=== PATIENT | female | born 1990 | race Caucasian/White ===

== ENCOUNTER 2016-04-20 19:26 | Outpatient (CLI) | payer BC ==
[~2016-04-20] VITALS: Ht 160 cm; Wt 84.5 kg
[2016-04-20 20:08] VITALS: Ht 160 cm; Wt 84.5 kg
[2016-05-06] MEDS ORDERED: MISC-836 (11:32)
== END 2016-04-20 20:28 | disposition home or self-care (01) ==
LOC: C.OPB 19:26 → C.LD 19:27 → C.OPB 19:56 → C.LD 19:56 → UNDOADMIN 19:56 → C.LD 20:28
PROVIDERS: ATTEND Obstetrics & Gynecology
DX: O36.8130 Decreased fetal movements, third trimester, not applicable or unspecified (principal); Z3A.38 38 weeks gestation of pregnancy

== ENCOUNTER 2016-05-02 00:52 | Outpatient (CLI) | payer BC ==
[~2016-05-02] VITALS: Ht 162.6 cm; Wt 84.4 kg
[2016-05-02 01:27] VITALS: Ht 162.6 cm; Wt 84.4 kg
[2016-05-02] MEDS ORDERED: FERR1TAB23 (01:32)
[2016-05-02] MEDS ORDERED: PRENTAB26 PO (01:32)
--- NOTE | 2016-05-07 12:25 | EDITING REQUIRED CODING QUERY ---
DIAGNOSIS NEEDED To promote full compliance with coding requirements relating to patient care, physician participation is requested in all cases of chief psychology uncertainty. Please assist us with the question(s) below: Coding Question: The patient received care in labor and delivery on 05/02/16 as noted within the record. Please document the diagnosis that is being addressed by the medication/treatment. Provider Response: DIAGNOSIS: False labor , thought she leaking amniotic fluid but was not Thank you for your assistance, Bee Oquendo - Wet Mix Operator
== END 2016-05-02 02:34 | disposition home or self-care (01) ==
LOC: C.OPB 00:52 → C.LD 00:53 → C.OPB 02:34 → EDSTATUS 05-04 00:50
PROVIDERS: ATTEND Obstetrics & Gynecology
DX: Z34.03 Encounter for supervision of normal first pregnancy, third trimester (principal); Z3A.39 39 weeks gestation of pregnancy

== ENCOUNTER 2016-05-04 19:43 | Inpatient (IN) | payer BC ==
[~2016-05-04] VITALS: Ht 160 cm; Wt 84.1 kg
[~2016-05-04 19:43] MED LIST: FERR1TAB23; PRENTAB26 PO
[2016-05-04 19:58] VITALS: Ht 160 cm; Wt 84.1 kg
[2016-05-04] MEDS ORDERED: LACTATED RINGER'S 1000ML 1,000 ML IV PRN (22:44)
[2016-05-04] MEDS ORDERED: LACTATED RINGER'S 1000ML 1,000 ML IV SCH (22:44)
[2016-05-04 23:21] LABS: HEMATOCRIT 33.6 % (37-47); MEAN CELL VOLUME 80.6 fL (80-100); MEAN CORPUSCULAR HEMOGLOBIN 27.3 pg (25-34); MEAN CORPUSCULAR HGB CONC 33.9 g/dl (32-36); MEAN PLATELET VOLUME 11.3 fL (7.4-10.4); PLATELET COUNT 180 K/uL (130-400); RED BLOOD COUNT 4.17 M/uL (4.2-5.4); WHITE BLOOD COUNT 20.82 K/uL (4.8-10.8)
[2016-05-05] MEDS ORDERED: EpHEDrine SULFATE INJ 50 MG/ML AMP ONE (00:41)
[2016-05-05] MEDS ORDERED: BUPIVACAINE 0.25% 30 ML VIAL ONE ×2 (00:41→12:29)
[2016-05-05] MEDS ORDERED: FENTANYL CITRATE INJ 50 MCG/1 ML 2 ML VIAL ONE ×2 (00:42→12:28)
[2016-05-05] MEDS ORDERED: FENTANYL 2MCG/ML ROPIV 1.25MG/ML 100ML BAG EPI ONE (00:42)
[2016-05-05] MEDS ORDERED: LACTATED RINGER'S 1000ML 500 ML IV PRN (01:16)
[2016-05-05] MEDS ORDERED: NALOXONE HCL INJ 1 MG in SODIUM CHLORIDE 0.9% 1000ML 1,000 ML IV PRN (01:16)
[2016-05-05] MEDS ORDERED: NALOXONE HCL INJ 0.4 MG/1 ML VIAL/CARP IV PRN (01:30)
[2016-05-05] MEDS ORDERED: ONDANSETRON INJ 2 MG/ML 2 ML VIAL IV PRN (01:30)
[2016-05-05] MEDS ORDERED: EpHEDrine SULFATE INJ 50 MG/ML AMP IV PRN (01:30)
[2016-05-05] MEDS ORDERED: NALBUPHINE HCL INJ 10 MG/ML AMP IV PRN (01:30)
[2016-05-05] MEDS ORDERED: DiphenhydrAMINE HCL 50 MG/ML VIAL IV PRN (01:30)
[2016-05-05] MEDS ORDERED: CALCIUM CARBONATE 500 MG CHEWABLE PO PRN (03:00)
[2016-05-05] MEDS: FENTANYL 2MCG/ML ROPIV 1.25MG/ML 100ML BAG EPI PRN ×4 (07:00→15:22)
[2016-05-05] MEDS ORDERED: NURSING VERBAL MED ORDER ONE ×2 (09:15→12:11)
[2016-05-05] MEDS ORDERED: OXYTOCIN 30 UNITS/500ML NSS IV PRN ×2 (09:30→16:45)
[2016-05-05] MEDS ORDERED: AMPICILLIN IV 2,000 MG in SODIUM CHLOR 0.9% AD-VAN 100ML 100 ML IV SCH ×2 (12:30→18:00)
[2016-05-05] MEDS ORDERED: ACETAMINOPHEN 325 MG TAB PO PRN (16:45)
[2016-05-05] MEDS ORDERED: LANOLIN OINT EXT PRN ×2 (16:45)
[2016-05-05] MEDS ORDERED: HYDROCORTISONE ACETATE 25 MG SUPP PR PRN (16:45)
[2016-05-05] MEDS ORDERED: BENZOCAINE 20% AER SPR 82.5 GM CAN EXT PRN (16:45)
[2016-05-05] MEDS ORDERED: SUPERCREAM 0.870 % 15GM JAR EXT PRN (16:45)
[2016-05-05] MEDS ORDERED: ACETAMINOPHEN/CODEINE 300/30MG TAB PO PRN ×2 (16:45)
[2016-05-05] MEDS ORDERED: DIPHTHERIA/TETANUS/PERTUSSIS 0.5 ML SYR/VIAL IM. ONE (16:45)
--- NOTE | 2016-05-05 19:26 | Anesthesia Procedure Note ---
Anesthesia Epidural Removal Nt Date & Time May 05, 2016 at 19:26 Vital Signs Pain Intensity: 0.0 Notes Mental Status: alert / awake / arousable, participated in evaluation Nausea / Vomiting: adequately controlled Pain: adequately controlled Airway Patency, RR, SpO2: stable & adequate BP & HR: stable & adequate Hydration State: stable & adequate Neuraxial Anesthesia: was administered Anesthetic Complications: no major complications apparent, pt satisfied with anesthetic care Epidural: removed without complications, with tip intact
[2016-05-05] MEDS: DOCUSATE SODIUM 100 MG CAP PO SCH (20:34)
[2016-05-05 20:50] VITALS: BP 108/67; PULSE 81; TEMP 36.8; O2SAT 96
[2016-05-05] MEDS: IBUPROFEN 600 MG TAB PO PRN (21:08)
--- NOTE | 2016-05-05 21:16 | DELIVERY SUMMARY ---
DATE OF OPERATION: 05/05/2016 FINDINGS: Viable female with Apgars of 1 at 1 minute and 3 at 5 minutes and 4 at 10 minutes, delivered directly OP over a midline episiotomy. Terminal meconium noted with delivery, baby limp with delivery with immediate cord clamping and transported to the resuscitation stand for evaluation and intervention. Cord gases and cord blood samples obtained. Placenta delivered spontaneously and sent for pathological evaluation. Midline episiotomy repaired with 4-0 and 2-0 Vicryl in a routine fashion. Estimated blood loss was 300 mL. LABOR NOTE: The patient is a 25-year-old 1, para 0 with an EDC of 04 May who was admitted at 40 and 0/7 weeks gestational age in early active labor. The patient presented to labor and delivery in the evening of the 04 of May for evaluation. Cervical change was documented and she was admitted. The patient's course had essentially been unremarkable. Her blood type is A negative, antibody negative. She received RhoGAM on the 10 of April. She is rubella immune, hepatitis B negative. She had a negative quad screen. She had a normal 1 hour Glucola x2 and a negative third trimester beta strep culture. The patient progressed to 4 cm and anesthesia was consulted and an epidural was placed. Following placement of the epidural, the patient had artificial rupture of membranes at 0300 for copious clear fluid. The patient had transfer of obstetrical care on the morning of [address] Delaney Cordero. The contractions spaced out after the epidural, and she had an isolated temperature spike to 100.6. There was a resultant increase in the heart rate into the 160s. Because of the elevated temperature, there was concern for chorioamnionitis and she was started on ampicillin 2 g IV q. 6 hours. With the contraction spacing out, Pitocin augmentation was initiated. An intrauterine pressure catheter was also placed in an attempt to monitor contractions appropriately. The patient had increasing pressure and pain, and anesthesia needed to redose her epidural. The patient progressed to an anterior lip and had an urge to push, but the anterior lip could not be reduced. She was then placed in knee chest position for approximately 45 minutes and then rechecked, the anterior lip could be reduced and she was able to begin her second stage. During the entire first stage of labor, her tracing was category 2 with moderate variability with accelerations. The patient pushed for approximately 1 hour and delivered over midline episiotomy in direct OP presentation with delivery of the infant terminal meconium was noted. The baby was limp and pale at , and immediate cord clamping occurred, and the baby was taken to the resuscitation stand. Please see the notes and details from the resuscitation for further information. Placenta delivered spontaneously prior to the cord gases and cord blood samples were obtained. The midline episiotomy was repaired with 4-0 and 2-0 Vicryl. Estimated blood loss was 300 mL. Sponge and needle count was correct. I attest to the content of the Intraoperative Record and any orders documented therein. Any exceptio ns are noted below.
[2016-05-06 00:15] VITALS: BP 111/71; PULSE 75; TEMP 36.5; O2SAT 97
[2016-05-06] MEDS ORDERED: NURSING VERBAL MED ORDER ONE (00:45)
[2016-05-06 04:25] VITALS: BP 98/63; PULSE 67; TEMP 36.6; O2SAT 97
[2016-05-06] MEDS: IBUPROFEN 600 MG TAB PO PRN (04:51)
--- NOTE | 2016-05-06 06:45 | Progress Note ---
Subjective May 06, 2016. Subjective conversation w/ patient, physical exam Ambulation: ambulating normally Voiding: no voiding problems Passing Gas: Yes Diet Tolerance: Regular Diet Lochia: Small Feeding Type: Breast Feeding Pain: No pain reported Review of Systems Constitutional: No chills, No fever Respiratory: No cough, No shortness of breath Cardiac: No chest pain Breast: No breast pain Abdomen: No nausea, No pain, No vomiting Female : No dysuria Objective Vital Signs Date Time Temp Pulse Resp B/P Pulse Ox O2 Delivery O2 Flow Rate FiO2 05/06/16 04:25 36.6 67 20 98/63 97 Room Air 05/06/16 00:15 97 Room Air 05/06/16 00:15 36.5 75 20 111/71 97 Room Air 05/05/16 20:50 36.8 81 24 108/67 96 Room Air Physical Exam General Appearance: WELL-APPEARING, WD/WN, NO APPARENT DISTRESS Respiratory/Chest: lungs clear, normal breath sounds Cardiovascular: regular rate, rhythm, no gallop, no murmur Abdomen: non tender, soft Fundus: Firm, Relation to Umbilicus (At level of umbilicus) Extremities: no calf tenderness Laboratory Results Last 24 Hours Test 05/06/16 04:44 Medications Current Inpatient Medications Medications (Trade) Dose Ordered Sig/Jak Route Start Time Stop Time Status Last Admin Dose Admin Calcium Carbonate (Tums Chew Tab) 500 mg Q6 PRN PO 05/05/16 03:00 06/04/16 02:59 05/05/16 03:09 500 MG Oxytocin (Pitocin IV) 30 units UD PRN IV 05/05/16 16:45 06/04/16 16:44 Benzocaine (Dermoplast Aero Spr) 1 appln PRN PRN EXT 05/05/16 16:45 06/04/16 16:44 05/05/16 21:08 1 APPLN Cocaine HCl (Supercream 0.870% Cr) BID PRN EXT 05/05/16 16:45 05/19/16 16:44 05/05/16 21:08 15 GM Hydrocortisone Acetate (Anusol Hc Supp) 25 mg BID PRN AL 05/05/16 16:45 06/04/16 16:44 Lanolin (Lanolin Oint) PRN PRN EXT 05/05/16 16:45 06/04/16 16:44 Prenat Multivit/ Speculator/Iron/Folic Ac ( Vitamin Tab) 1 tab DAILY PO 05/06/16 08:00 06/05/16 07:59 Ibuprofen (Motrin Tab) 600 mg Q4H PRN PO 05/05/16 16:45 06/04/16 16:44 05/06/16 04:51 600 MG Acetaminophen (Tylenol Tab) 650 mg Q6H PRN PO 05/05/16 16:45 06/04/16 16:44 Acetaminophen/ Codeine Phosphate (Tylenol w/ Codeine #3 Tab) 1 tab Q4H PRN PO 05/05/16 16:45 06/04/16 16:44 Acetaminophen/ Codeine Phosphate (Tylenol w/ Codeine #3 Tab) 2 tab Q4H PRN PO 05/05/16 16:45 06/04/16 16:44 Bisacodyl (Dulcolax Tab) 5 mg 20 PO 05/06/16 20:00 05/06/16 20:01 Docusate Sodium (coLACE CAP) 100 mg BID PO 05/05/16 20:00 06/04/16 19:59 05/05/16 20:34 100 MG Ferrous Sulfate (Feosol Tab) 325 mg DAILY PO 05/06/16 08:00 06/05/16 07:59 Assessment and Plan Problem List Medical Problems: (1) Facial swelling Status: Acute (2) Pain, dental Status: Acute Post- Day#: 1 Continue Routine Care: - Vital Signs reviewed and WNL (temp max 36.8) - Blood Type: A-, GBS- , Rubella Immune - Patient doing well clinically - Encourage Ambulation today - No pain reported this morning - Tolerating PO Diet Well - Discharge today
--- NOTE | 2016-05-06 06:55 | Discharge Instructions ---
Discharge Instructions Admission Reason for Admission: LABOR Discharge Discharge Diagnosis / Problem: Vaginal Delivery Discharge Goals Goal(s): Routine recovery after delivery Medications Continue Dispensed Medications: supercream, dermaplast, tucks, lansinoh Activity Recommendations Activity Limitations: per Instructions/Follow-up section . Instructions / Follow-Up Instructions / Follow-Up ACTIVITY RECOMMENDATIONS: * Gradual return to full activity over the next 2-3 weeks. * No lifting - nothing heavier than baby over the next 2-3 weeks. * Do not engage in vigorous exercise, sexual activity or sports until cleared by your physician. * Do not drive or operate any motorized equipment until cleared by your physician. * You may shower/bathe daily. MEDICATIONS: For discomfort or pain, you may use Acetaminophen (Tylenol), Ibuprofen (Advil), or Naproxen (Aleve) following the package directions. For constipation you may use Colace following the package directions. BREAST CARE: If you are not breast feeding: * Wear a supportive bra 24 hours a day for one to two weeks. * Avoid stimulating your breasts and nipples as much as possible during the first few weeks after delivery. * When taking a shower, have the warm water hit your back, not breasts. * When your breasts feel full, apply ice packs. Usually three to four times a day helps ease the discomfort. * Take a mild pain medication (Tylenol / Motrin) when you are uncomfortable. If breast feeding: * Use breast milk to lubricate nipples. Lansinoh cream may be used for sore nipples. You do not need to remove cream prior to breast feeding. If using a different brand of cream, check the label for directions regarding removal of cream prior to nursing. * Wear a supportive bra. * If having problems with breasts or breast feeding, call a help desk consultant or your health care provider. EPISIOTOMY CARE: After delivery, if you have an episiotomy (stitches), the following steps will ease discomfort and aid healing. * For the first 24 hours after delivery, place ice packs next to your episiotomy to help reduce swelling. * After the first 24 hour-period, sitz baths, either portable or in the tub, are suggested. A shower with a shower arm sprayed over the episiotomy may be comforting. * Nan care should be done after each voiding and bowel movement. Squirt warm water from a plastic bottle over the perineum (region of the body between the anus and urinary opening) and pat dry. * Use Dermoplast to ease discomfort. Shake container. [place] directly over the episiotomy. Place a Tucks on a clean sanitary pad next to your episiotomy. SPECIAL CARE INSTRUCTIONS: When you are discharged from the hospital, it is important for you to follow the instructions listed below: * During the first week at home, you should be able to care for yourself and your baby. In addition, the usual light household activities are encouraged. * Limit your activities to the way you feel. Do not try to clean the house or move furniture. Be sensible. * If you actively engage in sports and have done so up until the time of your delivery, you may resume these activities as soon as you feel able. This may take up to one month or even longer. Use good judgment. * Continue to take your vitamins for at least six weeks after the of your baby. * Your diet need not be limited unless you were on a special diet before your delivery. Breast-feeding mothers need around 2500 calories per day and at least 64-80 ounces of fluid per day (8 to 10 glasses). * You should eat foods from the four major food groups. Crash diets or fad diets are to be avoided. Eating lean meats, fresh fruits and vegetables, low-fat dairy products, high fiber foods and a regular exercise program, will help you get back to your pre- weight without putting your health at risk. * Constipation is sometimes a problem after delivery. Take a mild laxative as needed. If breast feeding, Milk of Magnesia is acceptable to use. You may use a suppository or Fleets enema if no episiotomy. * A daily shower or tub bath is suggested. Be sure to thoroughly and gently dry the perineum. * A bloody vaginal discharge will usually continue until around four weeks post . A small amount of bleeding may continue for as long as six weeks. Vaginal discharge changes from the bright red bleeding after delivery to pink then brownish and finally yellowish-pink before becoming white and disappearing. * Bleeding may increase with activity. Your first period may come in 4-8 weeks. If you are breast feeding, your period may be delayed even longer. * [place] (sex) can begin whenever both you and your partner feel comfortable and do not have any form of genital infection. It is recommended that you wait at least six weeks for internal and external healing to occur. If you have questions, please talk to your health care practitioner. A condom should be used to prevent infection and . * Foreplay, gentle intercourse and lubrication is very important the first several times to prevent pain. A water-based lubricant such as K-Y jelly or Astroglide may be used. * If you have RH negative blood and your baby is RH positive, you will receive RHOGAM by injection prior to discharge. The nurse will give you a card to keep with you that has the date and place that you received RHOGAM after delivery. * During your care, you had a Rubella screen done to check for the presence of rubella antibodies in your blood. If your test was negative, you will receive a Rubella vaccine prior to discharge. This vaccine may cause a fever, soreness at the injection site and flu-like symptoms. If these symptoms persist, notify your health care practitioner. is not advised for one month after a Rubella vaccine. * Verbalizes understanding of car seat law as reviewed with patient nursing. * Car Seat hand-out given and reviewed with patient by nursing. * Shaken baby information reviewed with patient by nursing. Call you doctor if: * Heavy bleeding (saturating several pads an hour) or passing clots the size of your fist. * A fever >101 degrees F (38.3 degrees C) on two occasions four hours apart and /or chills. * Unusual pain in the pelvic or vaginal areas. * "Baby Blues" lasting longer than two weeks. If you have any questions or concerns, call your health care practitioner at . FOLLOW UP VISIT: * Please call the office at to schedule a 6 week examination. It is important you keep this appointment. It is important for you to make arrangements for either yearly or twice yearly check-ups thereafter. Current Hospital Diet Patient's current hospital diet: Regular OB Diet Discharge Diet Recommended Diet: Regular Diet Pending Studies Studies pending at discharge: no Medical Emergencies . Who to Call and When: Medical Emergencies: If at any time you feel your situation is an emergency, please call 911 immediately. . Non-Emergent Contact Non-Emergency issues call your: [facility] . . "Provider Documentation" section prepared by Jorge Alberto Hanson. VTE Core Measure Inpt VTE Proph given/why not?: Treatment not indicated
[2016-05-06 07:24] LABS: HEMATOCRIT 31.3 % (37-47)
[2016-05-06 08:00] VITALS: BP 103/63; PULSE 74; TEMP 36.6; O2SAT 97
[2016-05-06] MEDS ORDERED: PRENATAL VITAMIN TAB PO SCH (08:00)
[2016-05-06] MEDS ORDERED: FERROUS SULFATE 325 MG TAB PO SCH (08:00)
[2016-05-06] MEDS: DOCUSATE SODIUM 100 MG CAP PO SCH (08:49)
[2016-05-06] MEDS ORDERED: MISC-696 (11:32)
[2016-05-06 12:18] VITALS: BP_DIAS 63; PULSE 74; TEMP 36.6
[2016-05-06] MEDS ORDERED: BISACODYL 5 MG TABEC PO SCH (20:00)
--- NOTE | 2016-05-07 14:24 | EDITING REQUIRED CODING QUERY ---
CODING QUERY To promote full compliance with coding requirements relating to patient care, provider participation is requested in all cases of glove factory sewer uncertainty. Please assist us with the question(s) below: Dear Dr. Mathew, Please clarify Chorioamionitis below: Medical documentation : Because of the elevated temperature, there was concern for chorioamnionitis and she was started on ampicillin 2 g IV q. 6 hours Coding Question(s): Chorioamionitis? ( ) Patient has Chorioamionitis ( ) Present on Admission ( ) Not Present on Admission ( ) Unable to determine ( x) Suspected Chorioamionitis ( ) Present on Admission ( x ) Not Present on Admission ( ) Unable to determine ( ) Chorioamionitis was ruled out ( ) Other: Please explain ( ) Unable to determine Physician's Response(s): Thank you for your time. Miladys Carlos [facility] Principal Diagnosis: "_that condition established after study, to be chiefly responsible for occasioning the admission of the patient to the hospital for care." Co-Existing Principal Diagnosis: "_when two or more diagnoses equally meet the criteria for principal diagnosis as determined by the circumstances of admission, diagnostic work up, and/or therapy provided, and the Alphabetic Index, Tabular List, or another coding guideline does not provide sequencing direction, any one of the diagnoses may be sequenced first." "When the physician has documented what appears to be a current diagnosis in the body of the record, but has not included the diagnosis in the final diagnostic statement, the physician should be asked whether the diagnosis should be added." (Source Coding [facility] 2 QTR90. p3-4)
== END 2016-05-06 12:17 | disposition home or self-care (01) | DRG 774 ==
LOC: C.OPB 19:43 → C.LD 19:44 → C.OPB 22:46 → C.OBG 05-05 20:03
PROVIDERS: ADMIT Obstetrics & Gynecology; ATTEND Obstetrics & Gynecology
PROC: 0W8NXZZ Division of Female Perineum, External Approach (ICD-10-PCS; principal; 2016-05-05)
PROC: 10E0XZZ Delivery of Products of Conception, External Approach (ICD-10-PCS; principal; 2016-05-05)
PROC: 10H07YZ Insertion of Other Device into Products of Conception, Via Natural or Artificial Opening (ICD-10-PCS; principal; 2016-05-05)
DX: O36.0130 Maternal care for anti-D [Rh] antibodies, third trimester, not applicable or unspecified (principal); O75.2 Pyrexia during labor, not elsewhere classified; O41.1230 Chorioamnionitis, third trimester, not applicable or unspecified; O77.0 Labor and delivery complicated by meconium in amniotic fluid; Z67.11 Type A blood, Rh negative; O76 Abnormality in fetal heart rate and rhythm complicating labor and delivery; O90.89 Other complications of the puerperium, not elsewhere classified; K08.89 Other specified disorders of teeth and supporting structures; R22.0 Localized swelling, mass and lump, head; Z3A.40 40 weeks gestation of pregnancy; Z37.0 Single live birth

== ENCOUNTER → 2017-07-03 | Outpatient (CLI) | payer OTHER ==
[~2017-07-03] MED LIST changes: +MISC-836
== END | disposition home or self-care (01) ==
LOC: C.LABSPEC 17:12
PROVIDERS: ATTEND Obstetrics & Gynecology
DX: Z34.81 Encounter for supervision of other normal pregnancy, first trimester (principal)

== ENCOUNTER → 2017-08-21 | Outpatient (CLI) | payer OTHER | END | disposition home or self-care (01) | LOC: C.LAB1850 11:45 | PROVIDERS: ATTEND Obstetrics & Gynecology | DX: Z34.82 Encounter for supervision of other normal pregnancy, second trimester (principal); Z3A.00 Weeks of gestation of pregnancy not specified ==

== ENCOUNTER → 2017-11-10 | Outpatient (CLI) | payer OTHER ==
[2017-11-10 10:12] LABS: HEMATOCRIT 33.5 % (37-47); HEMOGLOBIN 11.1 g/dL (12.0-16.0)
== END | disposition home or self-care (01) ==
LOC: C.LAB1850 08:42
PROVIDERS: ATTEND Obstetrics & Gynecology
DX: Z34.83 Encounter for supervision of other normal pregnancy, third trimester (principal); Z3A.00 Weeks of gestation of pregnancy not specified

== ENCOUNTER 2022-05-07 07:41 | Inpatient (IN) ==
--- NOTE | 2022-05-07 08:36 | History & Physical Report ---
Date of Service May 07, 2022 Assessment & Plan (1) Elective induction of labor planned: Plan: 31 y/o female here for IOL. Patient has a hx of precipitous labor. Russo balloon. Epidural when/if desired. Start pit when indicated. Rh neg - will eval post . GBS neg. RI. Admission and Anticipated Discharge Date Admission Date: May 07, 2022 History of Present Illness Chief Complaint: IOL - hx of precipitous labor Primary Care Provider: Blanca Begum 31 y/o female here for IOL. Patient has a hx of precipitous labor. GBS neg, RI, Rho neg (had Rhogam). + contractions - no pattern, pink-brown tinged discharge since being checked yesterday, no loss of fluid, +FM. last pap 2015 no STD hx Allergies Allergy/AdvReac Type Severity Reaction Status Date / Time doxycycline AdvReac Intermediate rash Verified 05/07/22 08:05 Home Medications Medication Instructions Recorded Confirmed Type prenat.vits,mallory,omp-krjd-kacjo 1 tab PO DAILY 09/23/21 05/07/22 History Patient History Medical History (Updated 05/07/22 @ 08:30 by Carli Chávez MD) Thyroiditis Varicella vaccination Surgical History History of cholecystectomy 2013 S/P tonsillectomy [place] teeth extracted 2009 Family History Sister Thrombocythemia Denies family history of Ovarian cancer Breast cancer Colorectal cancer Social History (Updated 09/23/21 @ 08:54 by Cecille Herrera) Smoking Status: Former smoker Second Hand Exposure: No; Do You Dip or Chew Tobacco: No; Tobacco Cessation Education Requested by Patient: No Hx Alcohol Use: No Hx Substance Use: No Preferred Language: [place] Citizen Communication Ability: Effective Care Manager Required: No Beliefs That Will Affect Care: None marital status: marital status details: Dereck Cristobal [phone] Current Living Situation: Spouse and Family Current Living Situation Comment: lives with spouse, 2 children, dog, cat- spouse changing litter current occupational status: employed current occupation: [employer] Other Information That Helps Us Care for You: No Feels Safe at Home: Yes Assistive Devices: None Physical Exam Constitutional: WD/WN, vitals as above Respiratory: no increased work of breathing Cardiovascular: clinically well perfused Genitourinary: Manual OB Exam: + cervical dilation 2 cm, + cervical effacement 50% and + station -2 OB Exam Monitor Tracing: + external FHT monitor used and + category I (baseline 140s, moderate variability, no decels) gravid Results & Data ([facility]) Vital Signs (Past 12 Hours) Vital Signs Pulse BP 05/07/22 08:22 76 115/65 Supervising Physician Co-Signing Physician Notes Resident Physician Supervision Note: I interviewed and examined the patient. Discussed with Dr. Chávez and agree with findings and plan as documented in the note. Any exceptions or clarifications are listed here: 31 yo at 40 wga presents for eIOL due to hx precip deliv. +FM; denies ctx, LOF, VB. PNI: Rh neg. VSS, fetus cat 1. SVE 2/50/-2, EFW 7- 8. 35cc russo placed after verbal informed consent, pt tolerated well. Will start pit up to [address], then increase after expulsion. GBS neg, epidural prn Documented By: Anastasiia Irene MD Resident Activity Tracking Resident Involvement: Resident Care Provided Care Provided: OB Delivery
[2022-05-07] MEDS ORDERED: OXYTOCIN 30 UNITS/500 ML BAG IV PRN ×3 (08:46→17:25)
[2022-05-07] MEDS ORDERED: LACTATED RINGER'S 1,000 ML IV PRN (08:46)
[2022-05-07] MEDS ORDERED: LIDOCAINE 1% LOCAL 20 ML VIAL INFIL PRN (08:46)
[2022-05-07 09:23] LABS: Hemoglobin 11.5 g/dl (12.0-16.0); Mean Corpuscular Hemoglobin 28.3 pg (25.0-34.0); Mean Corpuscular Hgb Conc 32.9 g/dL (32.0-36.0); Mean Corpuscular Volume 86.2 fL (80.0-100.0); Mean Platelet Volume 11.5 fL (9.4-12.3); Platelet Count 169 K/uL (130-400); RDW Coefficient of Variation 13.6 % (11.5-14.5); Red Blood Count 4.06 M/uL (3.93-5.22); White Blood Count 10.62 K/ul (4.8-10.8)
--- NOTE | 2022-05-07 15:08 | Labor Progress Brief Note ---
Date of Service May 07, 2022 Subjective Ctx more uncomfortable but manageable Assessment & Plan (1) Elective induction of labor planned: Plan: 31 yo at 40 wga admitted for eIOL VSS Fetus cat 1 Labor - pit at 10, now s/p arom. Continue augmentation GBS neg epidural PRN Admission and Anticipated Discharge Date Admission Date: May 07, 2022 Physical Exam Genitourinary: Manual OB Exam: + cervical dilation 4 cm, + cervical effacement 50%, + station -2 and + amniotic fluid (AROM copious oscar fluid) OB Exam Monitor Tracing: + external FHT monitor used, + external uterine monitor used (q3-4) and + category I (140/mod/+accel/-decel) Results & Data ([facility]) Vital Signs (Past 12 Hours) Vital Signs Temp Pulse Resp BP O2 Del Method 05/07/22 14:20 68 105/61 05/07/22 13:29 83 115/53 L 05/07/22 12:19 84 95/51 L 05/07/22 11:45 75 103/59 L 05/07/22 11:19 87 100/54 L 05/07/22 11:00 18 05/07/22 11:00 98.2 F 18 05/07/22 10:59 90 101/53 L 05/07/22 10:19 82 124/74 05/07/22 08:22 98.1 F 76 18 115/65 05/07/22 08:07 98.1 F 18 Room Air Coding Level of Care Code None Diagnoses Elective induction of labor planned
--- NOTE | 2022-05-07 17:15 | Delivery Summary ---
Vaginal Delivery Summary Date of Service May 07, 2022 Vaginal Delivery Summary and 2nd Degree LAC PREOPERATIVE DIAGNOSIS: 1. Single intrauterine at 40 wga 2. History of precipitous labor 3. Elective induction of labor POSTOPERATIVE DIAGNOSIS: 1. Single intrauterine at 40 wga 2. History of precipitous labor 3. Elective induction of labor 4. Delivered PROCEDURE: 1. Normal spontaneous vaginal delivery. SURGEON: Anastasiia Irene MD ANESTHESIA: Local ESTIMATED BLOOD LOSS: 300 mL FLUIDS: Continuous LR. URINE OUTPUT: None. COMPLICATIONS: None. CONDITION: Stable. INDICATIONS: 31 yo at 40 wga presented for elective induction today due to history of precipitous labor. Induction was begun with russo bulb and pitocin. Following russo bulb expulsion, pitocin was titrated up and she underwent AROM. Following arom, she rapidly progressed to complete and desired to push. FINDINGS: A viable female infant, weight pending with Apgars of 9 and 9 at 1 and 5 minutes respectively. SPECIMEN: Cord blood, placenta OPERATIVE REPORT: The patient progressed to 10 cm, 100% effaced and +2 station, pushed over intact perineum with anesthesia to deliver a viable female , weight and Apgars as above. Head of delivered in RANJIT position. Tight nuchal cord was noted and delivered through. Body and shoulders were delivered without difficulty. was delivered to maternal abdomen and nursing staff. Delayed cord clamping was performed for 60 seconds. Cord was clamped and cut. Cord blood was obtained. Placenta delivered spontaneously intact with 3-vessel cord. IV oxytocin and fundal massage were given for excellent hemostasis. Vagina, cervix, perineum, and placenta were inspected. A second degree laceration was noted and repaired using 3-0 vicryl in the usual fashion after administering 8cc of 1% lidocaine without epinephrine. There was excellent hemostasis. Sponge and needle counts correct x2. No sponges were left behind. Mother and stable in immediate period. [facility] Vaginal Delivery Charge Vaginal Delivery Codes: 08417 global code for the antepartum, delivery, and post- Delivery Type Details: and 2nd Degree LAC
[2022-05-07] MEDS ORDERED: HYDROCORTISONE ACETATE 25 MG SUPP PR PRN (17:25)
[2022-05-07] MEDS ORDERED: DIPHTHERIA/TETANUS/PERTUSSIS 0.5mL SYR/VIAL (Age 7+yrs) IM ONE (17:25)
[2022-05-07] MEDS ORDERED: ACETAMINOPHEN 325 MG TAB PO PRN (17:25)
[2022-05-07] MEDS ORDERED: BENZOCAINE 20% AER SPR 82.5 GM CAN EXT PRN (17:25)
[2022-05-07] MEDS ORDERED: bisacodyL 10 MG SUPP PR PRN (17:25)
[2022-05-07] MEDS: IBUPROFEN 600 MG TAB PO PRN ×2 (18:00→23:28)
[2022-05-07] MEDS: DOCUSATE SODIUM 100 MG CAP PO SCH (20:55)
--- NOTE | 2022-05-08 06:07 | Obstetrical Progress Note ---
Date of Service <Carli Chávez MD - Last Filed: 05/08/22 06:22> May 08, 2022 Assessment & Plan <Carli Chávez MD - Last Filed: 05/08/22 06:22> (1) Elective induction of labor planned: 31 y/o female here for IOL now PPD1. Patient has a hx of precipitous labor. Satisfactory post progress. Tolerating PO. Encourage ambulation. Rh neg - will eval post . GBS neg. RI. Gina Cansecoo MS3 contributed to the history and physical of this note. <Anastasiia Irene MD - Last Filed: 05/08/22 08:10> (1) Elective induction of labor planned: Subjective <Carli Chávez MD - Last Filed: 05/08/22 06:22> Ambulation: ambulating normally Voiding: no voiding problems Passing Gas:: Yes Diet Tolerance:: regular diet Lochia:: Small Feeding Type:: bottle feeding Physical Exam <Carli Chávez MD - Last Filed: 05/08/22 06:22> Constitutional WD/WN, vitals as above Respiratory normal respiratory effort, lungs clear to auscultation Cardiovascular RRR, no murmur, no edema Extremities: no calf tenderness Psychiatric A+Ox3, euthymic affect Genitourinary OB Exam Abdomen: + fundal height (@ the level of the umbilicus) Fundus: + firm Results & Data ([facility]) <Carli Chávez MD - Last Filed: 05/08/22 06:22> Vital Signs (Past 12 Hours) Vital Signs Temp Pulse Pulse Resp BP BP Pulse Ox 05/08/22 00:00 36.8 C 82 16 104/66 99 05/07/22 19:30 36.8 C 80 16 102/62 97 05/07/22 19:05 37.1 C 18 05/07/22 19:05 81 106/57 L 05/07/22 18:50 76 107/57 L 05/07/22 18:36 70 113/60 05/07/22 18:21 66 115/63 O2 Del Method 05/08/22 00:00 Room Air 05/07/22 19:30 Room Air 05/07/22 19:05 05/07/22 19:05 05/07/22 18:50 05/07/22 18:36 05/07/22 18:21 <Anastasiia Irene MD - Last Filed: 05/08/22 08:10> Co-Signing Physician Notes Resident Physician Supervision Note: I interviewed and examined the patient. Discussed with Dr. Chávez and agree with findings and plan as documented in the note. Any exceptions or clarifications are listed here: 31 yo PP1 s/p , doing well. VSS, exam benign and wnl. Desires d/c later today, stable to do so after 24 hrs Documented By: Anastasiia Irene MD Resident Activity Tracking <Carli Chávez MD - Last Filed: 05/08/22 06:22> Resident Involvement: Resident Care Provided Care Provided: OB Delivery
[2022-05-08] MEDS: IBUPROFEN 600 MG TAB PO PRN (06:21)
[2022-05-08] MEDS ORDERED: FERROUS SULFATE 325 MG TAB PO SCH (08:00)
[2022-05-08] MEDS ORDERED: PRENATAL VITAMIN 1 TAB PO SCH (08:00)
[2022-05-08] MEDS: DOCUSATE SODIUM 100 MG CAP PO SCH (08:09)
[2022-05-08] MEDS ORDERED: bisacodyL 5 MG TABEC PO SCH (20:00)
== END 2022-05-08 17:45 | disposition home or self-care (01) | DRG 807 ==
LOC: 4S1 07:41 → 4E2 19:39